=== PATIENT | male | born 1975 | race Caucasian/White ===

== ENCOUNTER 2022-02-01 11:59 | Emergency (ER) | payer OTHER ==
[2022-02-01 13:38] LABS: CORONAVIRUS 2019 SARS-COV-2 NEGATIVE (NEGATIVE); INFLUENZA A NAA NEGATIVE (NEGATIVE)
[2022-02-01] MEDS ORDERED: MEDROL 4MG DOSEP4 MG PO (13:51)
[2022-02-01] MEDS ORDERED: AMOX TR-K CLV1 EAC4 PO (13:51)
== END 2022-02-01 14:00 | disposition home or self-care (01) ==
LOC: FER 11:59
PROVIDERS: Nurse Practitioner Family
DX: J18.9 Pneumonia, unspecified organism (principal); Z20.822 Contact with and (suspected) exposure to COVID-19; Z28.310 Unvaccinated for COVID-19
CPT/HCPCS: 71045; 93005; 94640; 94664; U0002